=== PATIENT | female | born 1945 | race Two or more races ===

== ENCOUNTER 2019-01-13 08:45 | Inpatient (IN) | payer OTHER ==
[~2019-01-13] VITALS: Ht 160 cm; Wt 54.4 kg
[2019-01-13] MEDS ORDERED: CORGARD20 M1 PO (10:36)
[2019-01-13] MEDS ORDERED: FOLIC ACID0.8 M1 PO (10:36)
[2019-01-13] MEDS ORDERED: [UNRECOGNIZED DRUG - OTHER] PO (10:37)
[2019-01-13] MEDS ORDERED: DICLOFE PO (10:37)
[2019-01-19] MEDS ORDERED: IBANDRONATE SO150 MG PO (08:18)
[2019-01-19] MEDS ORDERED: DICLOFENAC SODI75 MG PO (08:18)
[2019-01-21] MEDS ORDERED: PERCOCET 5-3251 EACH PO (11:25)
[2019-01-21] MEDS ORDERED: DUI500 PO (11:25)
[2019-01-21] MEDS ORDERED: ELIQUIS2.5 MG PO (11:25)
== END 2019-01-21 16:26 | DRG 470 ==
LOC: O/R 08:45 → SURG 01-19 04:30 → SURH 01-19 07:00 → SURG 01-19 10:30
PROVIDERS: ADMIT Orthopaedic Surgery
PROC: 0MNP0ZZ Release Left Knee Bursa and Ligament, Open Approach (ICD-10-PCS; 2019-01-19)
PROC: 0SRD0J9 Replacement of Left Knee Joint with Synthetic Substitute, Cemented, Open Approach (ICD-10-PCS; principal; 2019-01-19 07:00)
DX: M17.12 Unilateral primary osteoarthritis, left knee (principal); M80.00XA Age-related osteoporosis with current pathological fracture, unspecified site, initial encounter for fracture; D62 Acute posthemorrhagic anemia; M22.12 Recurrent subluxation of patella, left knee; D51.3 Other dietary vitamin B12 deficiency anemia; K70.30 Alcoholic cirrhosis of liver without ascites; D69.49 Other primary thrombocytopenia; Z96.652 Presence of left artificial knee joint

== ENCOUNTER 2020-12-05 10:52 | Inpatient (IN) | payer OTHER ==
[~2020-12-05] VITALS: Ht 165.1 cm; Wt 49.9 kg
[~2020-12-05 10:52] MED LIST: CORGARD20 M1 PO; DICLOFE PO; DICLOFENAC SODI75 MG PO; DUI500 PO; ELIQUIS2.5 MG PO; FOLIC ACID0.8 M1 PO; IBANDRONATE SO150 MG PO; PERCOCET 5-3251 EACH PO; [UNRECOGNIZED DRUG - OTHER] PO
[2020-12-13] MEDS ORDERED: LOSARTAN POTASS25 MG (09:26)
[2020-12-13] MEDS ORDERED: VITAMIN B-121000 MC2 (09:27)
[2020-12-13] MEDS ORDERED: VITAMIN D350 MC3 (09:27)
[2020-12-13] MEDS ORDERED: ALENDRONATE SOD70 MG (09:27)
[2020-12-14] MEDS ORDERED: DUI500 PO (17:00)
[2020-12-14] MEDS ORDERED: PERCOCET 5-3251 EACH PO (17:00)
[2020-12-14] MEDS ORDERED: ELIQUIS2.5 MG PO (17:00)
== END 2020-12-14 20:46 | DRG 469 ==
LOC: SURH 12-12 05:10 → O/R 12-12 05:10 → SURH 12-12 08:30
PROVIDERS: ADMIT Orthopaedic Surgery; ATTEND Orthopaedic Surgery
PROC: 0MNN0ZZ Release Right Knee Bursa and Ligament, Open Approach (ICD-10-PCS; 2020-12-12)
PROC: 0QRD0JZ Replacement of Right Patella with Synthetic Substitute, Open Approach (ICD-10-PCS; 2020-12-12)
PROC: 5A09457 Assistance with Respiratory Ventilation, 24-96 Consecutive Hours, Continuous Positive Airway Pressure (ICD-10-PCS; 2020-12-12)
PROC: 3E0F7SF Introduction of Other Gas into Respiratory Tract, Via Natural or Artificial Opening (ICD-10-PCS; 2020-12-12)
PROC: 4A033R1 Measurement of Arterial Saturation, Peripheral, Percutaneous Approach (ICD-10-PCS; 2020-12-12)
PROC: 0SRC0J9 Replacement of Right Knee Joint with Synthetic Substitute, Cemented, Open Approach (ICD-10-PCS; principal; 2020-12-12 13:30)
PROC: 4A12X4Z Monitoring of Cardiac Electrical Activity, External Approach (ICD-10-PCS; 2020-12-13)
PROC: 3E0F7GC Introduction of Other Therapeutic Substance into Respiratory Tract, Via Natural or Artificial Opening (ICD-10-PCS; 2020-12-13)
PROC: BW2510Z Computerized Tomography (CT Scan) of Chest, Abdomen and Pelvis using Low Osmolar Contrast, Unenhanced and Enhanced (ICD-10-PCS; 2020-12-14)
DX: M17.11 Unilateral primary osteoarthritis, right knee (principal); J95.821 Acute postprocedural respiratory failure; D62 Acute posthemorrhagic anemia; I16.9 Hypertensive crisis, unspecified; M22.11 Recurrent subluxation of patella, right knee; Y83.8 Other surgical procedures as the cause of abnormal reaction of the patient, or of later complication, without mention of misadventure at the time of the procedure; Y79.2 Prosthetic and other implants, materials and accessory orthopedic devices associated with adverse incidents; Y92.238 Other place in hospital as the place of occurrence of the external cause; I10 Essential (primary) hypertension; F17.200 Nicotine dependence, unspecified, uncomplicated

== ENCOUNTER → 2020-12-07 12:50 | Outpatient (CLI) | payer OTHER ==
[~2020-12-07 12:50] MED LIST changes: +ALENDRONATE SOD70 MG; +LOSARTAN POTASS25 MG; +VITAMIN B-121000 MC2; +VITAMIN D350 MC3
== END | disposition home or self-care (01) ==
LOC: LAB 12:50
PROVIDERS: ATTEND Specialist
DX: D68.8 Other specified coagulation defects (principal)

== ENCOUNTER 2021-07-04 08:11 | Outpatient (CLI) | payer OTHER | END 2021-07-04 08:20 | disposition home or self-care (01) | LOC: LAB 08:11 | PROVIDERS: ATTEND Radiology Diagnostic Radiology | DX: B18.2 Chronic viral hepatitis C (principal) ==

== ENCOUNTER 2021-07-13 09:28 | Outpatient (CLI) | payer OTHER | END 2021-07-13 09:37 | disposition home or self-care (01) | LOC: MRI 09:28 | PROVIDERS: ATTEND Internal Medicine Gastroenterology | DX: B18.2 Chronic viral hepatitis C (principal); K74.60 Unspecified cirrhosis of liver; R19.5 Other fecal abnormalities | CPT/HCPCS: 74183; Q9965 ==

== ENCOUNTER 2023-01-09 07:50 | Outpatient (CLI) | payer OTHER | END 2023-01-09 08:01 | disposition home or self-care (01) | LOC: TOM 07:50 | PROVIDERS: ATTEND Internal Medicine Pulmonary Disease | DX: J43.2 Centrilobular emphysema (principal); Z87.891 Personal history of nicotine dependence ==

== ENCOUNTER 2025-01-17 07:27 | Outpatient (CLI) | payer OTHER | END 2025-01-17 07:35 | disposition home or self-care (01) | LOC: MRI 07:27 | PROVIDERS: ATTEND Internal Medicine Gastroenterology | DX: K74.69 Other cirrhosis of liver (principal); K63.1 Perforation of intestine (nontraumatic); K55.20 Angiodysplasia of colon without hemorrhage | CPT/HCPCS: 74183; Q9965 ==